=== PATIENT | female | born 1990 | race Caucasian/White ===

== ENCOUNTER 2019-04-04 04:39 | Inpatient (IN) | payer MEDICAID, OTHER ==
[~2019-04-04] VITALS: Ht 160 cm; Wt 87.5 kg
[2019-04-04] VITALS (74 sets, daily range): BP systolic 87–163; BP diastolic 49–98
--- NOTE | 2019-04-04 04:45 | NUR ---
FRANKO LAM presented to unit via from ED, accompanied by FAMILY, FOR INDUCTION. FRANKO LAM weighed, gowned, voided, and to bed. EFHM and TOCO applied, VS taken. FRANKO LAM oriented to bed controls, call light, TV, heat, and A/C controls.
[2019-04-04] MEDS ORDERED: OXYTOCIN/NORMAL SALINE 500 ML IV ONE (04:48)
[2019-04-04] MEDS ORDERED: D5 LR IV SOLUTION 1,000 ML IV ONE (04:48)
[2019-04-04] MEDS ORDERED: MINERAL OIL CONCENTRATE 99.9% 15 ML UDC TOP PRN (05:00)
[2019-04-04 05:34] LABS: BASOPHILS % (AUTO) 0 % (0-10); EOSINOPHILS # (AUTO) 0.3 10^3/uL (0.0-0.3); EOSINOPHILS % (AUTO) 2 % (0-10); HEMATOCRIT 34 % (35-52); HEMOGLOBIN 11.5 G/DL (11.5-16.0); LYMPHOCYTES # (AUTO) 2.5 X 10^3 (1.0-4.0); LYMPHOCYTES % (AUTO) 23 % (12-44); MEAN CORPUSCULAR HEMOGLOBIN 30 PG (25-34); MEAN CORPUSCULAR HGB CONC 34 G/DL (32-36); MEAN CORPUSCULAR VOLUME 88 FL (80-99); MEAN PLATELET VOLUME 10.4 FL (7.4-10.4); MONOCYTES # (AUTO) 1.1 X 10^3 (0.0-1.0); MONOCYTES % (AUTO) 10 % (0-12); NEUTROPHILS # (AUTO) 7.2 X 10^3 (1.8-7.8); NEUTROPHILS % (AUTO) 65 % (42-75); PLATELET COUNT 274 10^3/uL (130-400); WHITE BLOOD COUNT 11.1 10^3/uL (4.3-11.0)
[2019-04-04] MEDS: D5 LR IV SOLUTION 1,000 ML IV SCH ×3 (05:55→20:33)
[2019-04-04] MEDS: OXYTOCIN/NORMAL SALINE 500 ML IV SCH (05:56)
[2019-04-04] MEDS ORDERED: CATHETER FLUSH 10 ML SYR IV SCH (06:00)
[2019-04-04] MEDS ORDERED: LACTATED RINGERS 1,000 ML IV ONE (07:21)
[2019-04-04] MEDS ORDERED: SUFENTA 0.6MCG/ML BUPIVA 0.125 100 ML ONE ×2 (08:00→16:20)
[2019-04-04] MEDS ORDERED: BUPIVACAINE 0.25% 30 ML (SENSORCAINE) VIAL ONE (08:04)
[2019-04-04] MEDS ORDERED: fentaNYL INJECTION 100 MCG/2 ML AMP ONE (08:04)
[2019-04-04] MEDS ORDERED: ONDANSETRON 4 MG/2 ML (SDV) Z0FRAN ONE (16:20)
--- NOTE | 2019-04-04 16:27 | History & Physical-OB/GYN ---
History of Present Illness History of Present Illness Reason for visit/HPI Admitted for Pitocin Induction of Labor at 39 weeks Date of Admission Apr 04, 2019 at 04:39 Date Seen by a Provider: Apr 04, 2019 Time Seen by a Provider: 07:00 I consulted on this patient on 04/04/19 16:22 Attending Physician Chano Hitchcock DO Admitting Physician Chano Hitchcock DO Consult Allergies and Home Medications Allergies Coded Allergies: No Known Drug Allergies (Unverified , 04/04/19) Patient Home Medication List Home Medication List Reviewed: Yes Past Lncjgby-Oftsrh-Ogcojs Hx Patient Social History Marrital Status: single Number of Children: 0 Number of living children: 0 Employed/Student: employed Alcohol Use: Denies Use Recreational Drug Use: No Smoking Status: Never a Smoker Physical Abuse Screen: No Sexual Abuse: No Recent Foreign Travel: No Contact w/other who traveled: No Recent Hopitalizations: No Recent Infectious Disease Expo: No Seasonal Allergies Seasonal Allergies: No Surgeries No Respiratory No Cardiovascular No Neurological No Reproductive System Expected Date of Delivery: Apr 10, 2019 Last Menstrual Period: Jul 04, 2018 Sexually Transmitted Disease: No HIV/AIDS: No Female Reproductive Disorders: Denies Genitourinary No Gastrointestinal No Musculoskeletal No Endocrine History of Endocrine Disorders: No HEENT History of HEENT Disorders: No Cancer No Psychosocial History of Psychiatric Problem: No Integumentary History of Skin or Integumenta: No Blood Transfusions History of Blood Disorders: No Family Medical History Family Hx: DVT 19 MOTHER Pulmonary embolism 19 MOTHER Sibling G8 BROTHER Review of Systems Constitutional: see HPI Physical Exam Physical Exam Vital Signs Vital Signs Date Time Temp Pulse Resp B/P (MAP) Pulse Ox O2 Delivery O2 Flow Rate FiO2 04/04/19 15:10 73 18 126/70 (88) 98 Room Air 04/04/19 14:55 83 18 121/75 (90) 98 Room Air 04/04/19 14:40 93 18 122/69 (86) 98 Room Air 04/04/19 14:25 75 18 122/67 (85) 98 Room Air 04/04/19 14:10 69 18 110/60 (77) 98 Room Air 04/04/19 13:55 76 18 104/56 (72) 98 Room Air 04/04/19 13:40 74 18 103/59 (74) 98 Room Air 04/04/19 13:25 76 18 111/57 (75) 98 Room Air 04/04/19 13:15 76 18 104/56 (72) 98 Room Air 04/04/19 13:10 80 18 114/59 (77) 98 Room Air 04/04/19 12:55 75 18 115/66 (82) 98 Room Air 04/04/19 12:40 37.1 84 18 126/61 (82) 99 Room Air 04/04/19 12:25 88 18 111/67 (82) 98 Room Air 04/04/19 12:10 79 18 113/69 (84) 98 Room Air 04/04/19 11:55 74 18 109/67 (81) 98 Room Air 04/04/19 11:40 85 18 110/66 (81) 97 Room Air 04/04/19 11:25 73 18 106/68 (81) 96 Room Air 04/04/19 10:55 75 18 117/72 (87) Room Air 04/04/19 10:40 83 18 115/75 (88) Room Air 04/04/19 10:25 71 18 114/66 (82) Room Air 04/04/19 10:10 86 18 115/58 (77) 95 Room Air 04/04/19 09:55 80 18 119/58 (78) 95 Room Air 04/04/19 09:40 75 18 101/61 (74) 95 Room Air 04/04/19 09:25 75 18 101/55 (70) 95 Room Air 04/04/19 09:10 75 18 104/61 (75) 97 Room Air 04/04/19 08:55 75 20 103/58 (73) 97 Room Air 04/04/19 08:40 82 20 111/59 (76) 97 Room Air 04/04/19 08:26 75 20 119/74 (89) 98 Room Air 04/04/19 08:21 71 20 113/76 (88) 99 Room Air 04/04/19 08:15 77 20 114/75 (88) 100 Room Air 04/04/19 08:10 79 20 117/73 (88) Room Air 04/04/19 07:55 67 20 110/67 (81) Room Air 04/04/19 07:40 71 20 121/66 (84) Room Air 04/04/19 07:30 72 20 126/58 (80) Room Air 04/04/19 07:10 36.6 71 20 107/61 (76) Room Air 04/04/19 07:00 84 18 129/85 (100) Room Air 04/04/19 06:45 88 18 108/70 (83) Room Air 04/04/19 06:30 77 18 120/73 (89) Room Air 04/04/19 06:15 76 18 114/69 (84) Room Air 04/04/19 05:00 36.2 83 18 97 Room Air 04/04/19 04:55 36.2 83 18 121/67 (85) Room Air Capillary Refill : NONE Labs Laboratory Tests 04/04/19 05:05: White Blood Count 11.1H, Red Blood Count 3.88L, Hemoglobin 11.5, Hematocrit 34L, Mean Corpuscular Volume 88, Mean Corpuscular Hemoglobin 30, Mean Corpuscular Hemoglobin Concent 34, Red Cell Distribution Width 14.0, Platelet Count 274, Mean Platelet Volume 10.4, Neutrophils (%) (Auto) 65, Lymphocytes (%) (Auto) 23, Monocytes (%) (Auto) 10, Eosinophils (%) (Auto) 2, Basophils (%) (Auto) 0, Neutrophils # (Auto) 7.2, Lymphocytes # (Auto) 2.5, Monocytes # (Auto) 1.1H, Eosinophils # (Auto) 0.3, Basophils # (Auto) 0.0 General Appearance: No Apparent Distress, WD/WN Respiratory: Chest Non Tender, Lungs Clear, Normal Breath Sounds Cardiovascular: Regular Rate, Rhythm Abdominal: normal bowel sounds, non tender Pelvic Exam: normal external exam Assessment/Plan Assessment and Plan Assessment: Intrauterine at 39 1/7 weeks Plan: Pitocin Induction of Labor. Artificial Rupture of Membranes. Epidural for pain management. I expect a normal spontaneous vaginal delivery. Admission Diagnosis Admission Status: Inpatient Order (span 2 midnights) Reason for Inpatient Admission: Pitocin Induction of Labor at 39 1/7 weeks Clinical Quality Measures DVT/VTE Risk/Contraindication: Risk Factor Score Per Nursin RFS Level Per Nursing on Admit: 2=Moderate CHANO HITCHCOCK DO Apr 04, 2019 16:27 POS
[2019-04-04] MEDS: ONDANSETRON 4 MG/2 ML (SDV) Z0FRAN IVP PRN ×2 (16:31→21:58)
[2019-04-04] MEDS ORDERED: CALCIUM CARBONATE 500 MG (TUMS) TAB.CHEW ONE (20:19)
[2019-04-04] MEDS ORDERED: CALCIUM CARBONATE 500 MG (TUMS) TAB.CHEW PO NR (20:30)
[2019-04-05] VITALS (36 sets, daily range): BP systolic 84–136; BP diastolic 53–89
[2019-04-05] MEDS ORDERED: SUFENTA 0.6MCG/ML BUPIVA 0.125 100 ML ONE (00:08)
[2019-04-05] MEDS ORDERED: EPIDURAL (SUFENTA 0.6MCG/ML BUPIVA 0.125%) 100 ML BAG EPI SCH (00:15)
[2019-04-05] MEDS ORDERED: NALOXONE 0.4 MG/ML 1 ML (NARCAN) VIAL IV PRN (00:15)
[2019-04-05] MEDS: OXYTOCIN/NORMAL SALINE 500 ML IV SCH (04:20)
[2019-04-05] MEDS: ONDANSETRON 4 MG/2 ML (SDV) Z0FRAN IVP PRN (04:22)
[2019-04-05] MEDS: D5 LR IV SOLUTION 1,000 ML IV SCH ×3 (04:27→10:47)
[2019-04-05] MEDS ORDERED: FAMOTIDINE 20MG/2ML IV (PEPCID) ONE (05:44)
[2019-04-05] MEDS ORDERED: CITRIC ACID/SOB CIT (BICITRA) 30 ML UDC ONE (05:44)
[2019-04-05] MEDS ORDERED: LACTATED RINGERS 1,000 ML IV ONE (05:44)
[2019-04-05] MEDS ORDERED: METOCLOPRAMIDE INJ 10 MG/2 ML (REGLAN) ONE (05:44)
[2019-04-05] MEDS ORDERED: ACETAMINOPHEN 650 MG SUPP (TYLENOL) PR ONE (05:45)
[2019-04-05] MEDS ORDERED: ACETAMINOPHEN 650 MG SUPP (TYLENOL) ONE (05:45)
[2019-04-05] MEDS ORDERED: CITRIC ACID/SOB CIT (BICITRA) 30 ML UDC PO ONE (06:00)
[2019-04-05] MEDS ORDERED: FAMOTIDINE 20MG/2ML IV (PEPCID) IV ONE (06:00)
[2019-04-05] MEDS ORDERED: METOCLOPRAMIDE INJ 10 MG/2 ML (REGLAN) IV ONE (06:00)
--- NOTE | 2019-04-05 06:00 | Progress Note-Pre Operative ---
Pre-Operative Progress Note H&P Reviewed The H&P was reviewed, patient examined and no changes noted. Date Seen by Provider: Apr 05, 2019 Time Seen by Provider: 05:50 Date H&P Reviewed: Apr 05, 2019 Time H&P Reviewed: 05:55 Pre-Operative Diagnosis: Intrauterine at 39 1/7 weeks 2. Secondary Arrest of Dilation RAOUL COLBY DO Apr 05, 2019 06:00 POS
--- NOTE | 2019-04-05 06:03 | Progress Note ---
Standard Progress Note Progress Notes/Assess & Plan Date Seen by a Provider: Apr 05, 2019 Time Seen by a Provider: 05:50 Progress/Assessment & Plan Ms. Raya has not changed her cervix in approximately ten hours with adequate contractions. Now, has developed a fever. This was discussed with her and her family. We are going to proceed with an immediate . The procedure and its associated risks were discussed. All questions were answered. Informed consent was obtained. Final Diagnosis Intrauterine at 39 1/7 weeks 2. Secondary Arrest of Dilation 3. Maternal Fever RAOUL COLBY DO Apr 05, 2019 06:03 POS
[2019-04-05] MEDS ORDERED: KETAMINE/NaCl 50 MG/5 ML SYRINGE (ED ONLY) ONE (06:29)
[2019-04-05] MEDS ORDERED: fentaNYL INJECTION 100 MCG/2 ML AMP ONE (06:31)
[2019-04-05] MEDS ORDERED: ceFAZolin 2 GM IV Premixed 50 ML ONE (06:40)
[2019-04-05] MEDS ORDERED: TETANUS,DIPTH,PERTUSS P/F (BOOSTRIX) 0.5 ML VIAL IM SCH (07:30)
[2019-04-05] MEDS ORDERED: OXYTOCIN/NORMAL SALINE 500 ML IV SCH (07:30)
[2019-04-05] MEDS ORDERED: MEASLES,MUMPS,RUBELLA 1 EA INJ SC SCH (07:30)
[2019-04-05] MEDS ORDERED: fentaNYL INJECTION 100 MCG/2 ML AMP IVP PRN (07:30)
[2019-04-05] MEDS ORDERED: ONDANSETRON 4 MG/2 ML (SDV) Z0FRAN IVP PRN (07:30)
--- NOTE | 2019-04-05 07:47 | Operative Report ---
Operative Report Date of Procedure/Surgery Apr 05, 2019 Surgeon (s) RAOUL COLBY DO Gaggerman (s): None Post-Operative Diagnosis Intrauterine at 39 2/7 weeks 2. Secondary Arrest of Dilation 3. Maternal Fever 4. Persistent Occiput Posterior Procedure Performed Primary Low Transverse Description of Procedure Anesthesia Type: Spinal Estimated blood loss (mL): 500 ml Specimen(s) collected/removed Placenta Description of the Procedure Ms. Ryaa was taken to the Operating Room with IV fluids running. Once in the OR, Spinal Anesthesia was administered without difficulty. She was then placed in the supine position with a leftward tilt. With Stephenson catheter in place she was prepped and draped in the normal sterile fashion. A pfannesteil skin incision was made and carried down to the underlying layer of the fascia. The fascia was nicked in the midline, extended bilaterally. The fascia was elevated and the rectus muscle dissected off sharply. The rectus muscle was in the midline. The peritoneum was identified and entered sharply. This incision was extended superiorly and inferiorly with good visualization of the bladder. The vesicouterine peritoneum was identified and entered sharply--then, extended laterally. The bladder flap was created digitally. The bladder blade was inserted. With a scalpel, a transverse uterine incision was made on the lower uterine segment, extended laterally. The vertex was delivered atraumatically, orally and nasally suctioned at the perineum. A viable male infant was delivered without complications. The cord was doubly clamped and cut. [place] was handed off to the waiting Pediatric Caregiver where NRP protocol was followed. Cord blood was obtained. The placenta was manually extracted. The uterus was exteriorized and cleared of all clots and debris. The uterine incision was then repaired in a running locked fashion with 0-Vicryl. Using the same type of suture, an imbricating stitch was placed. The vesicouterine peritoneum was approximated with 3-0 Vicryl in a running fashion. The uterus was returned to the pelvic cavity. The gutters were cleared. The parietal peritoneum was closed with 3-0 Vicryl in a running fashion. The fascia was closed with 0-Vicryl. The subcutaneous tissues were approximated with 3-0 Plain Gut. The skin was closed with 4-0 Vicryl in a subcuticular manner. A sterile bandage was applied. Sponge, instrument, and needle counts were correct x 3. Mom was taken to the Recovery Room in good and stable condition. Findings of the Procedure A viable male in the Left Occiput Posterior position. Allergies and Home Medications Allergies Coded Allergies: No Known Drug Allergies (Unverified , 04/04/19) Patient Home Medication List Home Medication List Reviewed: Yes RAOUL COLBY DO Apr 05, 2019 07:47 POS
[2019-04-05] MEDS ORDERED: BUPIVACAINE 0.5% 30 ML (SENSORCAINE) VIAL ONE (08:09)
--- NOTE | 2019-04-05 09:00 | NUR ---
PT TRANSFERRED TO PP ROOM 308 IN STABLE CONDITION FROM OB PAR AFTER A PRIMARY SECTION BY DR. COLBY ACC BY KENNEY RN AND Gina SOTO RN. PT WANTING TO GO SEE I N NURSERY SO TAKEN TO NURSERY VIA PT BED.
--- NOTE | 2019-04-05 09:30 | NUR ---
RETURNED PT TO ROOM 308 VIA BED AFTER SEEING IN THE NURSERY.
--- NOTE | 2019-04-05 10:30 | NUR ---
FOB HERE WANTING TO SEE INFANT. GRANDMOTHER HAS 4TH BRACELET. FOB RAISING VOICE AND STATING "I GUESS I HAVE NO RIGHTS EVEN THOUGH I'M THE DAD." THIS RN STATED THAT "WE CAN'T HAVE THIS CONFLICT HERE". THIS RN TOOK FOB AROUND TO NURSERY WINDOW. PT WANTING TO GO WITH HIM.
--- NOTE | 2019-04-05 10:45 | NUR ---
PT UP TO A W/C AND TRANSPORTED TO NURSERY WINDOW.
[2019-04-05] MEDS: DOCUSATE SODIUM 100 MG (COLACE) CAP PO SCH ×2 (10:49→20:26)
[2019-04-05] MEDS: METOCLOPRAMIDE 10 MG (REGLAN) TAB PO SCH ×2 (11:46→18:24)
[2019-04-05] MEDS: ACETAMINOPHEN 500 MG TAB (TYLENOL) PO SCH ×2 (11:46→18:24)
--- NOTE | 2019-04-05 12:00 | NUR ---
LOTS OF FAMILY AT THE BEDSIDE. VSS. DOING WELL.
[2019-04-05] MEDS: KETOROLAC 30 MG/ML VIAL IV SCH ×2 (13:45→20:26)
[2019-04-05] MEDS ORDERED: ceFAZolin 2 GM IV Premixed 50 ML IV SCH (14:00)
[2019-04-05] MEDS ORDERED: CATHETER FLUSH 10 ML SYR IV SCH (14:00)
[2019-04-05] MEDS ORDERED: FLU QUADRIvalent (5+ YOA) 2019-2020 (AFLURIA) 0.5 ML IM ONE (14:45)
--- NOTE | 2019-04-05 15:02 | Anesthesia-Regional Post-Op ---
Regional Patient Condition Mental Status: Alert, Oriented x3 Circulation: Same as Pre-Op Headache: Absent Sensation: Full Recovery Motor Block: Absent Post Op Complications Complications None Follow Up Care/Instructions Patient Instructions None needed. Anesthesia/Patient Condition Patient is doing well, no complaints, stable vital signs, no apparent adverse anesthesia problems. No complications reported per nursing. KEITH ISLAS CRNA Apr 05, 2019 15:02 POS
--- NOTE | 2019-04-05 16:05 | NUR ---
BRENDEN D/C'ED PER PT REQUEST AND DR. CHAVIS. MARKO WITH PAD AND UNDERWEAR CHANGE.
--- NOTE | 2019-04-05 16:15 | NUR ---
IV TO SALINE LOCK PER DR. LASHA BONILLA.
--- NOTE | 2019-04-05 16:30 | NUR ---
PT HAS BEEN TO THE NURSERY NUMEROUS TIMES TO SEE . CONTINUES TO DO WELL. PUMPING BREASTS.
--- NOTE | 2019-04-05 17:00 | NUR ---
PT AND FAMILY ASKING IF DRRenita WILL APPROVE REGULAR DIET. DR. COLBY NOTIFIED OF REQUEST BUT PT TO REMAIN ON SLEAR LIQUIDS UNTIL HAS A BM.
--- NOTE | 2019-04-05 18:25 | NUR ---
PT AND MOM IN THE NURSERY. PAIN MEDS GIVEN. AMBULATING WELL. ENCOURAGED FLUIDS SINCE IV SALINE LOCKED.
[2019-04-06 00:54] VITALS: BP 109/59
[2019-04-06] MEDS: METOCLOPRAMIDE 10 MG (REGLAN) TAB PO SCH ×3 (00:54→12:00)
[2019-04-06] MEDS: KETOROLAC 30 MG/ML VIAL IV SCH (02:22)
[2019-04-06] MEDS: ACETAMINOPHEN 500 MG TAB (TYLENOL) PO SCH ×2 (02:22→10:18)
[2019-04-06] MEDS ORDERED: MILK OF MAGNESIA 400 MG/5 ML 30 ML UDC PO NR (05:00)
[2019-04-06] MEDS ORDERED: BISACODYL 10 MG SUPP (DULCOLAX) PR NR (05:00)
[2019-04-06 05:17] VITALS: BP 109/76
[2019-04-06 05:28] LABS: BASOPHILS % (AUTO) 0 % (0-10); EOSINOPHILS # (AUTO) 0.3 10^3/uL (0.0-0.3); EOSINOPHILS % (AUTO) 1 % (0-10); HEMATOCRIT 27 % (35-52); HEMOGLOBIN 9.1 G/DL (11.5-16.0); LYMPHOCYTES # (AUTO) 2.2 X 10^3 (1.0-4.0); LYMPHOCYTES % (AUTO) 9 % (12-44); MEAN CORPUSCULAR HEMOGLOBIN 30 PG (25-34); MEAN CORPUSCULAR HGB CONC 33 G/DL (32-36); MEAN CORPUSCULAR VOLUME 90 FL (80-99); MEAN PLATELET VOLUME 10.4 FL (7.4-10.4); MONOCYTES # (AUTO) 1.2 X 10^3 (0.0-1.0); MONOCYTES % (AUTO) 5 % (0-12); NEUTROPHILS # (AUTO) 20.5 X 10^3 (1.8-7.8); NEUTROPHILS % (AUTO) 85 % (42-75); PLATELET COUNT 211 10^3/uL (130-400); RED CELL DISTRIBUTION WIDTH 14.2 % (10.0-14.5); WHITE BLOOD COUNT 24.2 10^3/uL (4.3-11.0)
--- NOTE | 2019-04-06 05:55 | NUR ---
drsg not removed as physician prefers to remove himself.
[2019-04-06] MEDS ORDERED: ACET-77 PO (06:21)
[2019-04-06] MEDS ORDERED: IBUP-1780 PO (06:21)
[2019-04-06] MEDS ORDERED: OXC5T PO (06:21)
[2019-04-06] MEDS ORDERED: DOCU100C37 PO (06:21)
--- NOTE | 2019-04-06 06:28 | Discharge Summary ---
Diagnosis/Chief Complaint Date of Admission Apr 04, 2019 at 04:39 Date of Discharge April 06, 2019 Discharge Date: Apr 06, 2019 Discharge Time: 12:00 Admission Diagnosis Admission Diagnosis Intrauterine at 39 2/7 weeks Discharge Diagnosis Intrauterine at 39 2/7 weeks 2. Secondary Arrest of Dilation 3. Maternal Fever 4. Persistent Occiput Posterior Reason Hospital Visit Admitted for Pitocin Induction of Labor at 39 weeks Discharge Summary Hospital Course Was the Problem List Reviewed?: Yes Hospital Course Ms. Raya was admitted for Pitocin Induction of Labor. She progressed to four centimeters, however, after no change in cervix for ten hours and developing a fever, she was taken for a Primary Low Transverse . The surgery was performed without complications. On her day of surgery she was given IV pain medication and antibiotics, and other comfort measures were instituted. Postoperative Day #1 found Ms. Raya voiding, moving her bowels, ambulating, tolerating a Regular Diet and controlling her pain with oral medications. Her vital signs remained stable after delivery. She will discharged to home with in structions, prescriptions and a follow up appointment. Labs Laboratory Tests 04/04/19 05:05: White Blood Count 11.1H, Red Blood Count 3.88L, Hematocrit 34L, Monocytes # (Auto) 1.1H 04/06/19 05:10: White Blood Count 24.2H, Red Blood Count 3.03L, Hematocrit 27L, Monocytes # (Auto) 1.2H, Hemoglobin 9.1#L, Neutrophils (%) (Auto) 85H, Lymphocytes (%) (Auto) 9L, Neutrophils # (Auto) 20.5H Procedures None. Discharge Physical Examination Allergies: Coded Allergies: No Known Drug Allergies (Unverified , 04/04/19) Vitals & I&Os Vital Signs Date Time Temp Pulse Resp B/P (MAP) Pulse Ox O2 Delivery O2 Flow Rate FiO2 04/06/19 05:17 37.0 77 18 109/76 (87) 97 Room Air General Appearance: Alert, Oriented X3, Cooperative HEENT: Atraumatic Respiratory: Clear to Auscultation, Normal Air Movement Cardiovascular: Regular Rate Abdominal: Normal Bowel Sounds Extremities: No Clubbing, No Cyanosis Skin: No Rashes Neuro: Normal Gait, Normal Speech Psych/Mental Status: Mental Status NL Discharge Home Medications Reviewed and agree with Discharge Medication list on patient's Discharge Instruction sheet Instructions to Patient/Family Please see electronic discharge instructions given to patient. Clinical Quality Measures DVT/VTE Risk/Contraindication: Risk Factor Score Per Nursin RFS Level Per Nursing on Admit: 2=Moderate RAOUL COLBY DO Apr 06, 2019 06:28 POS
--- NOTE | 2019-04-06 09:00 | NUR ---
PT AND HER MOTHER TO NURSERY TO SEE INFANT.
[2019-04-06] MEDS ORDERED: IBUPROFEN 800 MG (MOTRIN) TAB PO ONE (09:05)
[2019-04-06] MEDS: DOCUSATE SODIUM 100 MG (COLACE) CAP PO SCH (09:45)
[2019-04-06] MEDS: IBUPROFEN 800 MG (MOTRIN) TAB PO SCH ×2 (09:45→16:52)
--- NOTE | 2019-04-06 09:45 | NUR ---
MEDS SCANNED AND GIVEN IN NURSERY TO PT. PT AT THIS TIME.
[2019-04-06 10:00] VITALS: BP 120/56
--- NOTE | 2019-04-06 12:00 | NUR ---
CONTINUES TO GO BACK AND FORTH TO NURSERY TO FEED . ANXIOUS FOR BABY TO COME OUT TO ROOM.
[2019-04-06 15:00] VITALS: BP 117/58
--- NOTE | 2019-04-06 15:00 | NUR ---
NO CHANGE IN STATUS.
--- NOTE | 2019-04-06 17:35 | NUR ---
DISCHARGE INSTRUCTIONS REVIEWED WITH COPY TO PT. STATES UNDERSTANDING OF ALL INSTRUCTIONS AND NEED TO F/U SCHEDULED AND NEEDED.
--- NOTE | 2019-04-06 17:45 | NUR ---
INFANT TAKEN TO ROOM BY NURSERY STAFF. SEE NURSERY NOTES.
[2019-04-06 18:00] VITALS: BP 117/58
--- NOTE | 2019-04-06 18:00 | NUR ---
DISMISSED FROM WS IN STABLE CONDITION. PT WILL REMAIN IN ROOM A BOARDER MOM.
== END 2019-04-06 18:00 | disposition home or self-care (01) | DRG 787 ==
LOC: LDRP 04:39
PROVIDERS: ADMIT Obstetrics & Gynecology; ATTEND Obstetrics & Gynecology
PROC: 3E033VJ Introduction of Other Hormone into Peripheral Vein, Percutaneous Approach (ICD-10-PCS; 2019-04-05)
PROC: 10D00Z1 Extraction of Products of Conception, Low, Open Approach (ICD-10-PCS; principal; 2019-04-05 06:45)
DX: O62.1 Secondary uterine inertia (principal); O64.0XX0 Obstructed labor due to incomplete rotation of fetal head, not applicable or unspecified; O75.2 Pyrexia during labor, not elsewhere classified; Z37.0 Single live birth; Z3A.39 39 weeks gestation of pregnancy; Z23 Encounter for immunization
CPT/HCPCS: 36415; 85025; 86850; 86900; 86901; 90715; 94664

== ENCOUNTER 2022-02-19 09:35 | Outpatient (CLI) | payer OTHER ==
[~2022-02-19] VITALS: Ht 160 cm; Wt 77.1 kg
[~2022-02-19 09:35] MED LIST: ACET-78 PO; DOCU100C37 PO; IBUP-1780 PO; OXC5T PO
== END 2022-02-19 14:30 | disposition home or self-care (01) ==
LOC: PREOP 09:35
PROVIDERS: ATTEND Surgery
DX: Z01.818 Encounter for other preprocedural examination (principal)

== ENCOUNTER 2022-03-03 11:16 | Day surgery (SDC) | payer OTHER ==
[~2022-03-03] VITALS: Ht 160 cm; Wt 77.1 kg
[2022-03-03] MEDS ORDERED: LACTATED RINGERS 1,000 ML IV STA (11:18)
[2022-03-03] MEDS ORDERED: LACTATED RINGERS 1,000 ML IV ONE (11:25)
[2022-03-03] MEDS ORDERED: HURRICAINE EXT TUBE (BENZOCAINE) XX PRN (11:30)
[2022-03-03 11:34] VITALS: BP 112/72
--- NOTE | 2022-03-03 11:48 | Progress Note-Pre Operative ---
Pre-Operative Progress Note Date of Available H&P: Feb 18, 2022 Date H&P Reviewed: Mar 03, 2022 Time H&P Reviewed: 11:45 History & Physical: H&P Reviewed, Patient Examed, No changes noted Pre-Operative Diagnosis: Rectal bleed, heartburn, hx of polyps TC TOPETE DO Mar 03, 2022 11:48
[2022-03-03] MEDS ORDERED: PROPOFOL INJECTION 50 ML IV ONE (13:00)
[2022-03-03] MEDS ORDERED: MIDAZOLAM 2 MG/2 ML (VERSED) VIAL ONE (13:00)
[2022-03-03] MEDS ORDERED: proPOfol 200 MG/20 ML (DIPRIVAN) VIAL IV ONE (13:21)
--- NOTE | 2022-03-03 13:33 | Progress Note-Post Operative ---
Post-Operative Progess Note Surgeon (s)/Accounts Administrator (s) Surgeon TC TOPETE DO Accounts Administrator: Musa Georges, EVERTONII Pre-Operative Diagnosis Rectal bleed, heartburn, hx of polyps Post-Operative Diagnosis Gastritis with bleed hiatal hernia rectal polyps int hemorrhoids Procedure & Operative Findings Date of Procedure 03/03/22 Procedure Performed/Findings EGD with bx Colonoscopy with cold bx PROCEDURE NOTE: After informed consent was obtained, the patient was brought to the endoscopy suite, placed in bed in left lateral decubitus position. She was administered IV sedation by the LOCKSTITCH BACK MAKER who then monitored vitals the entire time, heart rate, blood pressure and pulse ox and the scope was inserted down the mouth through the esophagus into the stomach. On the way down, noted some mild esophagitis, took a picture, pushed into the stomach, pushed past the antrum into the duodenum. Duodenum looked good. Pulled back and noted some gasritis with bleeding; did a biopsy of the antrum. Then retroflexed the scope, saw a small hiatal hernia, took a picture of this and then pulled the scope into the GE junction and then did a biopsy of the GE junction. Pushed the scope back into the stomach, suctioned all the air out of the stomach. At this point pulled the scope up the esophagus and out the mouth. Switched camera, switched gloves, went down below, started the colonoscopy. Pushed all the way into about 140 cm to get all the way to cecum, took a picture of the appendiceal orifice, noted the ileocecal valve and then slowly withdrew the scope, insufflating to look circumferentially at the becker starting in the cecum, up the ascending colon to the hepatic flexure, then down the transverse colon to the splenic flexure, into the descending colon, down into the sigmoid and finally into the rectum. Found two small polyps and elected to remove them with cold biopsy. Finally retroflexed in the rectal vault, saw some minimal internal hemorrhoids and took a picture of them. The patient tolerated the procedure and she recovered in the endoscopy suite. Recommended for repeat colonoscopy in 5 years Anesthesia Type IV sedation by anesthesia Estimated Blood Loss Estimated blood loss (mL): scant Specimens/Packing Specimens Removed antral bx body of stomach bx GE jxn bx Rectal polyp x 2 TC TOPETE DO Mar 03, 2022 13:33
--- NOTE | 2022-03-03 13:34 | Endoscopy Discharge Instruct ---
Endo Procedure/Findings Findings 1.: Gastritis 2.: Hiatal Hernia 3.: Polyp 4.: Internal Hemorrhoids Discharge Instructions - Activity: You might feel a little sleepy until tomorrow. This is due to the medicine you received to relax you. Until tomorrow, you should: NOT drive a car, operate machinery or power tools. NOT drink any alcoholic beverages. NOT make any important decisions or sign importortant papers. Do not return to work until tomorrow, unless otherwise instructed. Resume previous activities tomorrow. Diet: Start by taking liquids. If you tolerate liquids, advance to solid food. 1.: EGD in 3 years 2.: Colonscopy in 5 years Notify Physician - If you experience excessive bleeding, unusual abdominal pain, fever, or chest pain, contact your doctor immediately. TC TOPETE DO Mar 03, 2022 13:34
[2022-03-03 13:35] VITALS: BP 94/53
--- NOTE | 2022-03-03 13:39 | Anesthesia-General Post-Op ---
MAC Patient Condition Mental Status/LOC: Same as Preop Cardiovascular: Satisfactory Nausea/Vomiting: Absent Respiratory: Satisfactory Pain: Controlled Complications: Absent Post Op Complications Complications None Follow Up Care/Instructions Patient Instructions None needed. Anesthesiology Discharge Order Discharge Order Patient is doing well, no complaints, stable vital signs, no apparent adverse anesthesia problems. No complications reported per nursing. AMANDA KUMAR DO Mar 03, 2022 13:39
[2022-03-03 13:40] VITALS: BP 94/55
[2022-03-03 13:45] VITALS: BP 101/59
[2022-03-03 14:05] VITALS: BP 115/81
[2022-03-03 14:13] VITALS: BP 115/81
== END 2022-03-03 14:30 | disposition home or self-care (01) ==
LOC: ENDO 11:16
PROVIDERS: ATTEND Surgery
DX: K29.71 Gastritis, unspecified, with bleeding (principal); K44.9 Diaphragmatic hernia without obstruction or gangrene; K62.1 Rectal polyp; K31.9 Disease of stomach and duodenum, unspecified; K64.8 Other hemorrhoids; K20.90 Esophagitis, unspecified without bleeding; K31.A0 Gastric intestinal metaplasia, unspecified; F17.210 Nicotine dependence, cigarettes, uncomplicated
CPT/HCPCS: 84703